=== PATIENT | female | born 1950 | race Asian ===

== ENCOUNTER 2023-09-19 17:26 | Inpatient (IN) | payer MEDICARE, OTHER ==
[~2023-09-19] VITALS: Ht 160 cm; Wt 34.0 kg
[~2023-09-19 17:26] MED LIST: ACET-868 PO; ASPI-1169 PO; ATOR10TA PO; CLOP75TA15 PO; CRAN425C6 PO; DOCU-141 PO; EMPA25TA PO; FERR325T23 PO; FOLI0.4T6 PO; FURO20TA4 PO; GLUC1KIT IM; INSU100V7 SQ; ISOS30TA9 PO; LACT1CAP7 PO; LOSA25TA27 PO; MAGN400O6 PO; METO25TA4 PO; MIRT7.5T10 PO; MONT10TA22 PO; MULT-447 PO; NITR0.4T48 SL; PANT40TA49 PO; QUET25TA PO
[2023-09-19] MEDS ORDERED: CIPROFLOXACIN IV RTU 200 ML IV ONE (17:59)
[2023-09-19 18:21] LABS: EOSINOPHILS # (AUTO) 0.1 K/uL (0.0-0.7); HEMOGLOBIN 10.5 g/dL (11.5-14.8); MONOCYTES # (AUTO) 0.6 K/uL (0.1-1.30)
[2023-09-19 18:25] LABS: BASOPHILS % (AUTO) 0.1 % (0.0-2.0); EOSINOPHILS % (AUTO) 0.9 % (0.0-6.0); HEMATOCRIT 37 % (33-45); LYMPHOCYTES % (AUTO) 9.2 % (20.0-44.0); MEAN CORPUSCULAR HEMOGLOBIN 24 PG (26.0-33.0); MEAN CORPUSCULAR HGB CONC 29 g/dl (31.0-36.0); MEAN CORPUSCULAR VOLUME 83 fL (82-100); MONOCYTES % (AUTO) 5.7 % (2.0-12.0); NEUTROPHILS # (AUTO) 9.5 K/uL (1.8-8.9); NEUTROPHILS % (AUTO) 84.1 % (43.0-81.0); PLATELET COUNT (AUTO) 394 K/uL (150-450); RED BLOOD CELL COUNT(AUTO) 4.44 MIL/uL (4.0-5.2); RED CELL DISTRIBUTION WIDTH 17.7 % (11.5-15.0); WHITE BLOOD COUNT (AUTO) 11.2 K/uL (4.3-11.0)
[2023-09-19] MEDS: CIPROFLOXACIN IV RTU 400 MG in PREMIX 1 EA IV SCH (18:30)
[2023-09-19 18:34] LABS: INR 1.01 (0.91-1.10); PARTIAL THROMBOPLASTIN TIME 21.7 SEC (24.3-34.3); PROTHROMBIN TIME 10.4 SECS (9.2-11.1)
[2023-09-19 18:37] LABS: ALANINE AMINOTRANSFERASE 11 U/L (12-78); ALKALINE PHOSPHATASE 104 U/L (46-116); ASPARTATE AMINOTRANSFERASE 18 U/L (15-37); BILIRUBIN,TOTAL 0.2 mg/dL (0.2-1.0); CALCIUM, SERUM 9.6 mg/dL (8.5-10.1); CARBON DIOXIDE 18 mmol/L (21-32); CREATININE 3.9 mg/dL (0.6-1.3); GLUCOSE 271 mg/dL (74-106); TOTAL PROTEIN, SERUM 10.1 g/dL (6.4-8.2)
[2023-09-19 18:46] LABS: ALBUMIN 3.1 g/dL (3.4-5.0); BILIRUBIN,DIRECT 0.1 mg/dL (0.0-0.2); CHLORIDE 123 mmol/L (98-107)
[2023-09-19 18:48] LABS: SODIUM SERUM 156 mmol/L (136-145); UREA NITROGEN, BLOOD 167 mg/dL (7-18)
[2023-09-19 18:49] LABS: LACTIC ACID 2.5 mmol/L (0.4-2.0)
[2023-09-19] MEDS: VANCOMYCIN 1 GM in IV D5W 250 ML IV ONE (19:12)
[2023-09-19] MEDS ORDERED: CEFT1VIA14 IV (19:43)
[2023-09-19] MEDS ORDERED: MELA1TAB27 PO (19:43)
[2023-09-19] MEDS ORDERED: ASCO500T21 PO (19:43)
[2023-09-19] MEDS ORDERED: SENN-261 PO (19:43)
[2023-09-19] MEDS ORDERED: NUT.237L71 PO (19:43)
[2023-09-19] MEDS ORDERED: INSU100V39 SQ ×2 (19:43)
[2023-09-19] MEDS ORDERED: NA P133E RC (19:43)
[2023-09-19] MEDS ORDERED: BISA10SU11 RC (19:43)
[2023-09-19] MEDS ORDERED: CHOL100043 PO (19:43)
[2023-09-19] MEDS ORDERED: HYDR-4076 PO (19:43)
[2023-09-19] MEDS ORDERED: HYDR-4303 PO (19:43)
[2023-09-19] MEDS ORDERED: ATOR80TA PO (19:43)
[2023-09-19] MEDS ORDERED: ISOS20TA15 PO (19:43)
[2023-09-19] MEDS ORDERED: PANT40SU2 PO (19:43)
[2023-09-19] MEDS ORDERED: METO100T14 PO (19:43)
[2023-09-19] MEDS ORDERED: DIVA125C5 PO (19:43)
[2023-09-19] MEDS ORDERED: LOSA50TA39 PO (19:43)
[2023-09-19] MEDS ORDERED: METF-441 PO (19:43)
[2023-09-19] MEDS: IV NS 0.9% 1,000 ML BAG IV ONE (19:55)
[2023-09-19] MEDS ORDERED: ACETAMINOPHEN 325 MG TABLET PO PRN (21:00)
[2023-09-19] MEDS ORDERED: hydrALAZINE HCL 25 MG TABLET PO PRN (21:00)
[2023-09-19] MEDS: SENNOSIDES 8.6 MG TABLET PO SCH (22:00)
[2023-09-19] MEDS: ATORVASTATIN 40 MG TABLET PO SCH (22:00)
[2023-09-19 23:38] LABS: APPEARANCE,URINE SLIGHTLY CLOUDY (CLEAR); BILIRUBIN,URINE NEGATIVE (NEGATIVE); BLOOD, URINE 3+ Ery/uL (NEGATIVE); COLOR,URINE YELLOW (YELLOW); KETONES,URINE TRACE mg/dL (NEGATIVE); LEUKOCYTE ESTERASE ,URINE NEGATIVE (NEGATIVE); NITRITE, URINE NEGATIVE (NEGATIVE); PROTEIN,URINE 3+ mg/dl (NEGATIVE); UGLUCOSE 1+ mg/dL (NEGATIVE); UROBILINOGEN,URINE 0.2 EU/dL (0.2)
[2023-09-20] MEDS ORDERED: MAG HYDROX/AL HYDROX/SIMETH 30 ML UDC PO PRN
[2023-09-20] MEDS ORDERED: MAGNESIUM HYDROXIDE 30 ML UDC PO PRN
[2023-09-20] MEDS ORDERED: ONDANSETRON HCL/PF 4 MG/2 ML VIAL IVP PRN
[2023-09-20] MEDS ORDERED: ACETAMINOPHEN 325 MG TABLET PO PRN
[2023-09-20] MEDS ORDERED: ZOLPIDEM TARTRATE 5 MG TABLET PO PRN
[2023-09-20] MEDS ORDERED: MEROPENEM 500 MG VIAL IV ONE ×2 (00:54→22:30)
[2023-09-20] MEDS: MEROPENEM 500 MG in IV NS 0.9% 50 ML IV SCH ×2 (01:04→08:36)
[2023-09-20] MEDS: ENOXAPARIN SODIUM 30 MG/0.3 ML DISP.SYRIN SQ SCH ×2 (01:17→22:00)
[2023-09-20 01:44] LABS: ADD URINE CULTURE YES; BACTERIA,URINE 2+ /HPF (None Seen); MUCUS,URINE Moderate /LPF (None Seen); RBC,URINE 21-50 /HPF (0-2); WBC,URINE NONE SEEN /HPF (0-3)
[2023-09-20 02:10] LABS: CHOLESTEROL 98 mg/dL (<200); HDL CHOLESTEROL 46 mg/dL (40-60); LDL 30 mg/dL (0-99); TRIGLYCERIDES 176 mg/dL (30-150)
[2023-09-20 06:53] LABS: BASOPHILS % (AUTO) 0.2 % (0.0-2.0); EOSINOPHILS # (AUTO) 0.2 K/uL (0.0-0.7); EOSINOPHILS % (AUTO) 1.7 % (0.0-6.0); HEMATOCRIT 29 % (33-45); HEMOGLOBIN 8.5 g/dL (11.5-14.8); LYMPHOCYTES # (AUTO) 0.6 K/uL (0.8-4.8); LYMPHOCYTES % (AUTO) 6.2 % (20.0-44.0); MEAN CORPUSCULAR HEMOGLOBIN 24 PG (26.0-33.0); MEAN CORPUSCULAR HGB CONC 29 g/dl (31.0-36.0); MEAN CORPUSCULAR VOLUME 83 fL (82-100); MONOCYTES # (AUTO) 0.7 K/uL (0.1-1.30); NEUTROPHILS # (AUTO) 8.8 K/uL (1.8-8.9); NEUTROPHILS % (AUTO) 84.9 % (43.0-81.0); PLATELET COUNT (AUTO) 250 K/uL (150-450); RED BLOOD CELL COUNT(AUTO) 3.52 MIL/uL (4.0-5.2); RED CELL DISTRIBUTION WIDTH 17.7 % (11.5-15.0); WHITE BLOOD COUNT (AUTO) 10.3 K/uL (4.3-11.0)
[2023-09-20] MEDS: PANTOPRAZOLE 40 MG TABLET.DR PO SCH (07:30)
[2023-09-20 08:00] VITALS: BP 116/88; TEMP 97.9; O2SAT 96
[2023-09-20 08:29] LABS: CALCIUM, SERUM 8.6 mg/dL (8.5-10.1); CARBON DIOXIDE 18 mmol/L (21-32); CREATININE 2.9 mg/dL (0.6-1.3); GLUCOSE 221 mg/dL (74-106); MAGNESIUM 2.6 mg/dL (1.8-2.4); PHOSPHORUS 2.7 mg/dL (2.5-4.9); POTASSIUM 4.2 mmol/L (3.5-5.1)
[2023-09-20] MEDS: ASPIRIN 81 MG TAB.CHEW PO SCH (08:36)
[2023-09-20] MEDS: LOSARTAN POTASSIUM 50 MG TABLET PO SCH (08:36)
[2023-09-20] MEDS: ISOSORBIDE MONONITRATE 20 MG TABLET PO SCH (08:37)
[2023-09-20] MEDS: METOPROLOL TARTRATE 50 MG TABLET PO SCH (08:37)
[2023-09-20] MEDS: CLOPIDOGREL BISULFATE 75 MG TABLET PO SCH (08:38)
[2023-09-20 08:41] LABS: SODIUM SERUM 161 mmol/L (136-145)
[2023-09-20 08:42] LABS: CHLORIDE 130 mmol/L (98-107); UREA NITROGEN, BLOOD 118 mg/dL (7-18)
[2023-09-20] MEDS ORDERED: MEROPENEM 500 MG in IV NS 0.9% 50 ML IV SCH (09:00)
[2023-09-20] MEDS: IV D5/0.45 NACL 1,000 ML IV PRN (13:21)
[2023-09-20] MEDS: IV D5W 1,000 ML IV ONE (15:01)
[2023-09-20 16:00] VITALS: BP 130/61; TEMP 97.9; O2SAT 96
[2023-09-20] MEDS: MONTELUKAST SODIUM (10MG) 10 MG TABLET PO SCH (17:46)
[2023-09-20 18:36] LABS: CALCIUM, SERUM 8.5 mg/dL (8.5-10.1); CARBON DIOXIDE 21 mmol/L (21-32); CHLORIDE 125 mmol/L (98-107); CREATININE 2.1 mg/dL (0.6-1.3); POTASSIUM 4.1 mmol/L (3.5-5.1)
[2023-09-20 19:01] LABS: SODIUM SERUM 156 mmol/L (136-145); UREA NITROGEN, BLOOD 86 mg/dL (7-18)
[2023-09-20 19:04] LABS: GLUCOSE 416 mg/dL (74-106)
[2023-09-20 20:00] VITALS: BP 135/85; TEMP 97.7; O2SAT 99
[2023-09-20] MEDS ORDERED: DEXTROSE 50%-WATER 50 ML DISP.SYRIN IV PRN (22:00)
[2023-09-20] MEDS: BLOOD SUGAR DIAGNOSTIC 1 EACH STRIP VI SCH (22:18)
[2023-09-20] MEDS ORDERED: IV NS 0.9% 100 ML IV ONE (22:30)
[2023-09-20] MEDS: MEROPENEM 500 MG in IV NS 0.9% 100 ML IV ONE (22:49)
[2023-09-20] MEDS: *INSULIN REGULAR(HUMULIN R)HUM 100 UNIT/ML VIAL SQ PRN (23:11)
[2023-09-21] MEDS: INSULIN REGULAR, HUMAN 100 UNIT/ML 3 ML VIAL SQ PRN (06:50)
[2023-09-21 07:00] VITALS: BP 129/70; TEMP 98.1; O2SAT 98
[2023-09-21 07:03] LABS: ALANINE AMINOTRANSFERASE 11 U/L (12-78); ALBUMIN 2.2 g/dL (3.4-5.0); ALKALINE PHOSPHATASE 89 U/L (46-116); ASPARTATE AMINOTRANSFERASE 18 U/L (15-37); BILIRUBIN,TOTAL 0.3 mg/dL (0.2-1.0); CALCIUM, SERUM 8.3 mg/dL (8.5-10.1); CARBON DIOXIDE 21 mmol/L (21-32); CREATININE 1.6 mg/dL (0.6-1.3); GLUCOSE 252 mg/dL (74-106); PHOSPHORUS 2.1 mg/dL (2.5-4.9); POTASSIUM 3.8 mmol/L (3.5-5.1); TOTAL PROTEIN, SERUM 7.5 g/dL (6.4-8.2); UREA NITROGEN, BLOOD 63 mg/dL (7-18)
[2023-09-21 07:21] LABS: BASOPHILS % (AUTO) 0.3 % (0.0-2.0); EOSINOPHILS # (AUTO) 0.2 K/uL (0.0-0.7); EOSINOPHILS % (AUTO) 2.2 % (0.0-6.0); HEMATOCRIT 26 % (33-45); MEAN CORPUSCULAR HEMOGLOBIN 25 PG (26.0-33.0); MEAN CORPUSCULAR HGB CONC 30 g/dl (31.0-36.0); MEAN CORPUSCULAR VOLUME 83 fL (82-100); MONOCYTES # (AUTO) 0.7 K/uL (0.1-1.30); MONOCYTES % (AUTO) 7.3 % (2.0-12.0); NEUTROPHILS # (AUTO) 7.3 K/uL (1.8-8.9); NEUTROPHILS % (AUTO) 79.2 % (43.0-81.0); PLATELET COUNT (AUTO) 229 K/uL (150-450); RED BLOOD CELL COUNT(AUTO) 3.19 MIL/uL (4.0-5.2); RED CELL DISTRIBUTION WIDTH 17.7 % (11.5-15.0); WHITE BLOOD COUNT (AUTO) 9.2 K/uL (4.3-11.0)
[2023-09-21 07:31] LABS: CREATINE KINASE, TOTAL 38 U/L (26-192)
[2023-09-21 07:42] LABS: CHLORIDE 128 mmol/L (98-107); SODIUM SERUM 159 mmol/L (136-145)
[2023-09-21] MEDS: IV D5W 1,000 ML IV PRN (11:31)
[2023-09-21 16:00] VITALS: BP 118/59; TEMP 98; O2SAT 98
[2023-09-21] MEDS: K PHOS NEUTRAL 250 MG TABLET PO SCH (16:47)
[2023-09-21 20:00] VITALS: BP 95/58; TEMP 98.9; O2SAT 98
[2023-09-22 07:09] LABS: PTH, INTACT 58 pg/mL (15-65)
[2023-09-22 07:39] LABS: BASOPHILS % (AUTO) 0.2 % (0.0-2.0); EOSINOPHILS # (AUTO) 0.1 K/uL (0.0-0.7); EOSINOPHILS % (AUTO) 1.6 % (0.0-6.0); HEMATOCRIT 24 % (33-45); HEMOGLOBIN 7.2 g/dL (11.5-14.8); LYMPHOCYTES # (AUTO) 1.2 K/uL (0.8-4.8); LYMPHOCYTES % (AUTO) 14.2 % (20.0-44.0); MEAN CORPUSCULAR HEMOGLOBIN 25 PG (26.0-33.0); MEAN CORPUSCULAR HGB CONC 30 g/dl (31.0-36.0); MEAN CORPUSCULAR VOLUME 84 fL (82-100); MONOCYTES # (AUTO) 0.6 K/uL (0.1-1.30); MONOCYTES % (AUTO) 7.3 % (2.0-12.0); NEUTROPHILS # (AUTO) 6.6 K/uL (1.8-8.9); NEUTROPHILS % (AUTO) 76.7 % (43.0-81.0); PLATELET COUNT (AUTO) 193 K/uL (150-450); RED BLOOD CELL COUNT(AUTO) 2.86 MIL/uL (4.0-5.2); RED CELL DISTRIBUTION WIDTH 17.9 % (11.5-15.0); WHITE BLOOD COUNT (AUTO) 8.6 K/uL (4.3-11.0)
[2023-09-22 07:47] LABS: ALANINE AMINOTRANSFERASE < 6 U/L (12-78); ALKALINE PHOSPHATASE 78 U/L (46-116); ASPARTATE AMINOTRANSFERASE 23 U/L (15-37); BILIRUBIN,TOTAL 0.3 mg/dL (0.2-1.0); CARBON DIOXIDE 20 mmol/L (21-32); CHLORIDE 125 mmol/L (98-107); CREATININE 1.2 mg/dL (0.6-1.3); GLUCOSE 214 mg/dL (74-106); MAGNESIUM 1.7 mg/dL (1.8-2.4); PHOSPHORUS 1.9 mg/dL (2.5-4.9); POTASSIUM 3.7 mmol/L (3.5-5.1); SODIUM SERUM 154 mmol/L (136-145); TOTAL PROTEIN, SERUM 6.9 g/dL (6.4-8.2); UREA NITROGEN, BLOOD 37 mg/dL (7-18)
[2023-09-22 08:00] VITALS: BP 132/66; TEMP 97.9; O2SAT 92
[2023-09-22] MEDS: MAGNESIUM OXIDE 400 MG TABLET PO ONE (11:49)
[2023-09-22 16:00] VITALS: BP 113/96; TEMP 98.2; O2SAT 96
[2023-09-22] MEDS: GLUCERNA SHAKE 237 ML CAN PO SCH (16:53)
[2023-09-22 20:00] VITALS: BP 113/58; TEMP 98.8; O2SAT 94
[2023-09-22] MEDS: MUPIROCIN OINT 2% 22 GM TUBE NS SCH (20:57)
[2023-09-23 07:41] LABS: ALBUMIN 2.1 g/dL (3.4-5.0); BILIRUBIN,TOTAL 0.4 mg/dL (0.2-1.0); CALCIUM, SERUM 8.1 mg/dL (8.5-10.1); CREATININE 1.1 mg/dL (0.6-1.3); MAGNESIUM 1.8 mg/dL (1.8-2.4); PHOSPHORUS 1.8 mg/dL (2.5-4.9); POTASSIUM 3.5 mmol/L (3.5-5.1); TOTAL PROTEIN, SERUM 7.1 g/dL (6.4-8.2)
[2023-09-23 07:47] LABS: BASOPHILS % (AUTO) 0.2 % (0.0-2.0); EOSINOPHILS # (AUTO) 0.1 K/uL (0.0-0.7); EOSINOPHILS % (AUTO) 1.5 % (0.0-6.0); HEMATOCRIT 27 % (33-45); LYMPHOCYTES # (AUTO) 1.5 K/uL (0.8-4.8); LYMPHOCYTES % (AUTO) 15.4 % (20.0-44.0); MEAN CORPUSCULAR HEMOGLOBIN 25 PG (26.0-33.0); MEAN CORPUSCULAR HGB CONC 30 g/dl (31.0-36.0); MEAN CORPUSCULAR VOLUME 83 fL (82-100); MONOCYTES # (AUTO) 0.6 K/uL (0.1-1.30); MONOCYTES % (AUTO) 6.7 % (2.0-12.0); NEUTROPHILS # (AUTO) 7.3 K/uL (1.8-8.9); NEUTROPHILS % (AUTO) 76.2 % (43.0-81.0); PLATELET COUNT (AUTO) 189 K/uL (150-450); RED BLOOD CELL COUNT(AUTO) 3.19 MIL/uL (4.0-5.2); RED CELL DISTRIBUTION WIDTH 17.3 % (11.5-15.0); WHITE BLOOD COUNT (AUTO) 9.6 K/uL (4.3-11.0)
[2023-09-23 08:00] VITALS: BP 92/52; TEMP 98.2; O2SAT 100
[2023-09-23 08:31] LABS: PLATELET ESTIMATE ADEQUATE
[2023-09-23 16:00] VITALS: BP 127/70; TEMP 98.4; O2SAT 100
[2023-09-23] MEDS: K PHOS NEUTRAL 250 MG TABLET PO ONE (17:31)
[2023-09-23 20:00] VITALS: BP 123/69; TEMP 97.5; O2SAT 99
[2023-09-24] VITALS (7 sets, daily range): BP systolic 94–126; BP diastolic 55–91; TEMP 97.7–99; O2SAT 99–100
[2023-09-24] MEDS: Z GUARD REMEDY 4 OZ OINT TP PRN (05:51)
[2023-09-24 07:50] LABS: BASOPHILS % (AUTO) 0.1 % (0.0-2.0); EOSINOPHILS # (AUTO) 0.2 K/uL (0.0-0.7); EOSINOPHILS % (AUTO) 2.4 % (0.0-6.0); HEMATOCRIT 22 % (33-45); LYMPHOCYTES # (AUTO) 1.2 K/uL (0.8-4.8); LYMPHOCYTES % (AUTO) 13.7 % (20.0-44.0); MEAN CORPUSCULAR HEMOGLOBIN 25 PG (26.0-33.0); MEAN CORPUSCULAR HGB CONC 31 g/dl (31.0-36.0); MEAN CORPUSCULAR VOLUME 80 fL (82-100); MONOCYTES # (AUTO) 0.4 K/uL (0.1-1.30); MONOCYTES % (AUTO) 5.1 % (2.0-12.0); NEUTROPHILS # (AUTO) 6.8 K/uL (1.8-8.9); NEUTROPHILS % (AUTO) 78.7 % (43.0-81.0); PLATELET COUNT (AUTO) 162 K/uL (150-450); RED BLOOD CELL COUNT(AUTO) 2.78 MIL/uL (4.0-5.2); WHITE BLOOD COUNT (AUTO) 8.6 K/uL (4.3-11.0)
[2023-09-24 08:01] LABS: HEMOGLOBIN 6.9 g/dL (11.5-14.8)
[2023-09-24 08:17] LABS: ALANINE AMINOTRANSFERASE 10 U/L (12-78); ALBUMIN 1.9 g/dL (3.4-5.0); ALKALINE PHOSPHATASE 78 U/L (46-116); ASPARTATE AMINOTRANSFERASE 24 U/L (15-37); BILIRUBIN,TOTAL 0.5 mg/dL (0.2-1.0); CALCIUM, SERUM 7.5 mg/dL (8.5-10.1); CARBON DIOXIDE 24 mmol/L (21-32); CHLORIDE 109 mmol/L (98-107); CREATININE 0.9 mg/dL (0.6-1.3); GLUCOSE 157 mg/dL (74-106); MAGNESIUM 1.4 mg/dL (1.8-2.4); PHOSPHORUS 2.6 mg/dL (2.5-4.9); POTASSIUM 3.2 mmol/L (3.5-5.1); SODIUM SERUM 140 mmol/L (136-145); TOTAL PROTEIN, SERUM 6.2 g/dL (6.4-8.2); UREA NITROGEN, BLOOD 15 mg/dL (7-18)
[2023-09-24] MEDS: MAGNESIUM OXIDE 400 MG TABLET PO ONE (10:12)
[2023-09-24] MEDS: POTASSIUM CHLORIDE 20 MEQ TAB.PRT.SR PO SCH (10:12)
[2023-09-24 15:06] LABS: *SPE A/G RATIO 0.6 (0.7-1.7); *SPE ALBUMIN 2.5 g/dL (2.9-4.4); *SPE ALPHA-1-GLOBULIN 0.3 g/dL (0.0-0.4); *SPE ALPHA-2-GLOBULIN 1.2 g/dL (0.4-1.0); *SPE BETA GLOBULIN 0.9 g/dL (0.7-1.3); *SPE GLOBULIN, TOTAL 4.5 g/dL (2.2-3.9); *SPE M-SPIKE Not Observed g/dL (Not Observed); *SPEGAMMA GLOBULIN 2.1 g/dL (0.4-1.8)
[2023-09-25 07:38] LABS: BASOPHILS % (AUTO) 0.1 % (0.0-2.0); EOSINOPHILS # (AUTO) 0.2 K/uL (0.0-0.7); EOSINOPHILS % (AUTO) 1.7 % (0.0-6.0); HEMATOCRIT 29 % (33-45); HEMOGLOBIN 9.3 g/dL (11.5-14.8); LYMPHOCYTES # (AUTO) 0.9 K/uL (0.8-4.8); LYMPHOCYTES % (AUTO) 9.6 % (20.0-44.0); MEAN CORPUSCULAR HEMOGLOBIN 26 PG (26.0-33.0); MEAN CORPUSCULAR HGB CONC 33 g/dl (31.0-36.0); MEAN CORPUSCULAR VOLUME 81 fL (82-100); MONOCYTES # (AUTO) 0.5 K/uL (0.1-1.30); MONOCYTES % (AUTO) 5.1 % (2.0-12.0); NEUTROPHILS # (AUTO) 7.9 K/uL (1.8-8.9); NEUTROPHILS % (AUTO) 83.5 % (43.0-81.0); PLATELET COUNT (AUTO) 162 K/uL (150-450); RED BLOOD CELL COUNT(AUTO) 3.53 MIL/uL (4.0-5.2); RED CELL DISTRIBUTION WIDTH 16.2 % (11.5-15.0); WHITE BLOOD COUNT (AUTO) 9.4 K/uL (4.3-11.0)
[2023-09-25 08:00] VITALS: BP 134/95; TEMP 98.2; O2SAT 98
[2023-09-25 08:10] LABS: ALBUMIN 1.9 g/dL (3.4-5.0); BILIRUBIN,TOTAL 0.5 mg/dL (0.2-1.0); CALCIUM, SERUM 7.8 mg/dL (8.5-10.1); CREATININE 0.8 mg/dL (0.6-1.3); MAGNESIUM 1.8 mg/dL (1.8-2.4); PHOSPHORUS 2.2 mg/dL (2.5-4.9); POTASSIUM 3.5 mmol/L (3.5-5.1); TOTAL PROTEIN, SERUM 6.4 g/dL (6.4-8.2)
[2023-09-25 08:14] VITALS: BP 134/95
[2023-09-25] MEDS ORDERED: MERO500P IV (10:34)
[2023-09-25] MEDS: MINERAL OIL/PETROL OINT 396 GM JAR TP SCH (11:10)
[2023-09-25] MEDS ORDERED: K PHOS NEUTRAL 250 MG TABLET PO ONE (16:00)
[2023-09-25] MEDS ORDERED: CLOTRIMAZOLE 1% 15 GM TUBE TP SCH (17:00)
== END 2023-09-25 14:10 | DRG 871 ==
LOC: ER 17:36 → MED 22:20 → TELE 09-20 → MED 09-20 09:55
PROVIDERS: ADMIT Nurse Practitioner Acute Care; ATTEND Nurse Practitioner Acute Care
PROC: 30233N1 Transfusion of Nonautologous Red Blood Cells into Peripheral Vein, Percutaneous Approach (ICD-10-PCS; principal; 2023-09-24)
DX: A41.9 Sepsis, unspecified organism (principal); G93.41 Metabolic encephalopathy; I21.A1 Myocardial infarction type 2; N17.0 Acute kidney failure with tubular necrosis; E87.20 Acidosis, unspecified; E44.0 Moderate protein-calorie malnutrition; E87.0 Hyperosmolality and hypernatremia; Z68.1 Body mass index [BMI] 19.9 or less, adult; N39.0 Urinary tract infection, site not specified; K21.9 Gastro-esophageal reflux disease without esophagitis; D64.9 Anemia, unspecified; E11.9 Type 2 diabetes mellitus without complications; E78.5 Hyperlipidemia, unspecified; M19.90 Unspecified osteoarthritis, unspecified site; R13.10 Dysphagia, unspecified; Z79.899 Other long term (current) drug therapy; Z79.84 Long term (current) use of oral hypoglycemic drugs; Z79.4 Long term (current) use of insulin; Z86.73 Personal history of transient ischemic attack (TIA), and cerebral infarction without residual deficits; Z88.0 Allergy status to penicillin; Z20.822 Contact with and (suspected) exposure to COVID-19; I11.0 Hypertensive heart disease with heart failure; I50.9 Heart failure, unspecified; I25.10 Atherosclerotic heart disease of native coronary artery without angina pectoris; F03.90 Unspecified dementia, unspecified severity, without behavioral disturbance, psychotic disturbance, mood disturbance, and anxiety; E88.09 Other disorders of plasma-protein metabolism, not elsewhere classified; E86.0 Dehydration; E87.8 Other disorders of electrolyte and fluid balance, not elsewhere classified; R62.7 Adult failure to thrive
CPT/HCPCS: 36415; 71045-TC; 80048-TC; 80053-TC; 80061-TC; 80076-TC; 81001; 82550-TC; 82962-TC; 83605-TC; 83735-TC; 83970; 84100-TC; 84155; 84165; 84484-TC; 85025-TC; 85730-TC; 86850-TC; 87040-TC; 87081-TC; 87086-TC; 92526; 92611-TC; 93307-TC; 97110-TC; 97112-TC; 97530-TC; A4216; A4223; G0378; J0744; J1650; J1815; J2185; J3370; J3490; J7030; J7040; J7042; J7050; J7060; J7070; P9016